=== PATIENT | female | born 1965 | race Caucasian/White ===

== ENCOUNTER 2017-04-16 10:20 | Emergency (ER) | payer OTHER ==
[~2017-04-16] VITALS: Ht 162.6 cm; Wt 121.6 kg
[~2017-04-16 10:20] MED LIST: ALBUAER19 INH; ASCO1CAP3 PO; ASPI-435 PO; CHOL20009 PO; CYM/30 PO; DIVA250T PO; LPR100 PO; METR0.75 TOP; MISC4CAP PO; MULTTAB58 PO; PRAZ2CAP2 PO; PROM12.56 PO; SYN75 PO; TRAZ100T29 PO
[2017-04-16 10:22] VITALS: TEMP 36.3; Ht 162.6 cm; Wt 121.6 kg
[2017-04-16] MEDS ORDERED: LORA-741 PO (10:46)
[2017-04-16] MEDS ORDERED: PROCHLORPERAZINE 5 MG/ML 2 ML VIAL IV STA (11:01)
[2017-04-16] MEDS ORDERED: DiphenhydrAMINE HCL 50 MG/ML VIAL IV STA (11:01)
[2017-04-16] MEDS ORDERED: SODIUM CHLORIDE 0.9% 500ML 500 ML IV STA (11:01)
[2017-04-16] MEDS ORDERED: METHYLPREDNISOLONE 125 MG VIAL IV STA (11:01)
--- NOTE | 2017-04-16 11:08 | EMERGENCY ROOM VISIT NOTE ---
History Report prepared by Constance: Brendon Canseco Under the Supervision of: Dr. Jeimy Du M.D. First contact with patient: 10:54 Chief Complaint: HEADACHE Stated Complaint: BELLA, EARS RINGING, BLURRY VISION History of Present Illness The patient is a 51 year old female who presents to the Emergency Room with complaints of a persistent right-sided headache for the past 1.5 weeks. The pain is currently rated 7/10 in severity, and she has been taking Aleve. The patient also complains of ringing in her ears and blurrier vision in one eye. She denies fevers, sinus pressure, speech difficulty, or true loss of vision. She initially thought her pain may be dental and did see her dentist. She also saw her doctor who wanted her to have an MRI today. The patient has a history of TBI. She is also treated for depression and hypothyroidism. The patient denies history of blood sugar problems. Source of History: patient Onset: 1.5 weeks ago Position: head Symptom Intensity: 7/10 Timing: other (persistent) Review of Systems See HPI for pertinent positives & negatives. A total of 10 systems reviewed and were otherwise negative. Past Medical & Surgical Medical Problems: (1) Depression (2) Hypothyroid (3) TBI (traumatic brain injury) Family History No pertinent family history Social History Smoking Status: Never Smoker Drug Use: none Marital Status: Housing Status: lives with significant other Occupation Status: employed Current/Historical Medications Scheduled Ascorbic Acid (Vitamin C), 500 MG PO DAILY Aspirin (Aspirin 81), 81 MG PO DAILY Cholecalciferol (Vitamin D), 2,000 UNITS PO DAILY Divalproex Sodium (Depakote Er), 250 MG PO HS Levothyroxine Sodium (Synthroid), 1 TAB PO DAILY Lorazepam (Ativan), Unknown Dose PO HS Metoprolol Tartrate (Metoprolol Tartrate), PO BID Multiple Vitamin (Multivitamin), 1 TAB PO DAILY Prazosin Hcl (Prazosin), 2 MG PO HS Probiotic Product (Align), 1 CAP PO DAILY Promethazine Hcl (Phenergan), 12.5 MG PO Q6H Allergies Coded Allergies: No Known Allergies (Unverified , 09/02/15) Physical Exam Vital Signs Date Time Temp Pulse Resp B/P (MAP) Pulse Ox O2 Delivery O2 Flow Rate FiO2 04/16/17 14:24 60 16 115/68 94 04/16/17 13:41 91 18 115/68 98 Room Air 04/16/17 13:21 92 04/16/17 11:41 96 18 131/79 92 Room Air 04/16/17 10:22 36.3 106 18 160/95 92 Room Air Physical Exam Vital signs reviewed. General: Well-appearing obese female, in no significant distress. HEENT: No scleral icterus, PERRLA, neck supple. Atraumatic. No meningeal signs. Cardiovascular: Regular rate and rhythm, no extra sounds. Pulmonary: Clear to auscultation bilaterally, normal work of breathing. Abdomen: Soft, nontender, nondistended, positive bowel sounds. Musculoskeletal: Atraumatic, no peripheral edema. Neurologic: Patient awake alert and oriented x 3, full strength in all 4 extremities. Cranial nerves 2 through 12 grossly intact. Skin: Warm, dry, no rash Medical Decision & Procedures ER Provider Diagnostic Interpretation: Radiology results as stated below per my review and radiologist interpretation: CT SCAN OF THE BRAIN WITHOUT IV CONTRAST CLINICAL HISTORY: Headache. Weakness. COMPARISON STUDY: CT of the brain dated 09/02/2015. TECHNIQUE: Unenhanced axial CT scan of the brain is performed from the vertex to the skull base. Automated dose control exposure was utilized. CT DOSE: 537.48 mGy.cm FINDINGS: Brain parenchyma: The brain parenchyma is normal in appearance. There is no hemorrhage, mass effect, or evidence of acute territorial ischemia by CT criteria. Wynn-white matter is preserved. No extra-axial fluid collection is seen. Ventricles, sulci, cisterns: Normal in configuration. Intracranial vasculature: The visualized intracranial vasculature at the skull base is normal in appearance. Calvarium: Unremarkable. Sinuses and mastoids: The visualized paranasal sinuses are clear. The mastoid air cells are well pneumatized. Orbits: The bony orbits are grossly intact. IMPRESSION: No acute intracranial abnormality. Electronically signed by: Saeid Davis M.D. 04/16/2017 11:54 AM Dictated Date/Time: 04/16/2017 11:53 AM Laboratory Results 04/16/17 11:25 Red Blood Count 4.24, Mean Corpuscular Volume 86.1, Mean Corpuscular Hemoglobin 28.8, Mean Corpuscular Hemoglobin Concent 33.4, Mean Platelet Volume 9.3, Neutrophils (%) (Auto) 56.9, Lymphocytes (%) (Auto) 28.9, Monocytes (%) (Auto) 7.4, Eosinophils (%) (Auto) 6.4, Basophils (%) (Auto) 0.3, Neutrophils # (Auto) 4.14, Lymphocytes # (Auto) 2.11, Monocytes # (Auto) 0.54, Eosinophils # (Auto) 0.47, Basophils # (Auto) 0.02 04/16/17 11:25 Test 04/16/17 11:00 04/16/17 11:25 Urine Color DK YELLOW Urine Appearance CLOUDY (CLEAR) Urine pH 7.0 (4.5-7.5) Urine Specific [place] 1.035 (1.000-1.030) Urine Protein NEG (NEG) Urine Glucose (UA) NEG (NEG) Urine Ketones TRACE (NEG) Urine Occult Blood NEG (NEG) Urine Nitrite NEG (NEG) Urine Bilirubin NEG (NEG) Urine Urobilinogen NEG (NEG) Urine Leukocyte Esterase TRACE (NEG) Urine WBC (Auto) 5-10 /hpf (0-5) Urine RBC (Auto) 0-4 /hpf (0-4) Urine Hyaline Casts (Auto) 5-10 /lpf (0-5) Urine Epithelial Cells (Auto) >30 /lpf (0-5) Urine Bacteria (Auto) 4+ (NEG) Urine Renal Epithelial Cells 0-5 /lpf (0-5) White Blood Count 7.29 K/uL (4.8-10.8) Red Blood Count 4.24 M/uL (4.2-5.4) Hemoglobin 12.2 g/dL (12.0-16.0) Hematocrit 36.5 % (37-47) Mean Corpuscular Volume 86.1 fL (80-100) Mean Corpuscular Hemoglobin 28.8 pg (25-34) Mean Corpuscular Hemoglobin Concent 33.4 g/dl (32-36) Platelet Count 271 K/uL (130-400) Mean Platelet Volume 9.3 fL (7.4-10.4) Neutrophils (%) (Auto) 56.9 % Lymphocytes (%) (Auto) 28.9 % Monocytes (%) (Auto) 7.4 % Eosinophils (%) (Auto) 6.4 % Basophils (%) (Auto) 0.3 % Neutrophils # (Auto) 4.14 K/uL (1.4-6.5) Lymphocytes # (Auto) 2.11 K/uL (1.2-3.4) Monocytes # (Auto) 0.54 K/uL (0.11-0.59) Eosinophils # (Auto) 0.47 K/uL (0-0.5) Basophils # (Auto) 0.02 K/uL (0-0.2) RDW Standard Deviation 44.0 fL (36.4-46.3) RDW Coefficient of Variation 14.0 % (11.5-14.5) Immature Granulocyte % (Auto) 0.1 % Immature Granulocyte # (Auto) 0.01 K/uL (0.00-0.02) Anion Gap 7.0 mmol/L (3-11) Est Creatinine Clear Calc Drug Dose 85.6 ml/min Estimated GFR () 75.5 Estimated GFR (Non- 65.2 BUN/Creatinine Ratio 16.5 (10-20) Calcium Level 8.8 mg/dl (8.5-10.1) Magnesium Level 2.2 mg/dl (1.8-2.4) Total Bilirubin 0.5 mg/dl (0.2-1) Direct Bilirubin < 0.1 mg/dl (0-0.2) Aspartate Amino Transf (AST/SGOT) 49 U/L (15-37) Alanine Aminotransferase (ALT/SGPT) 68 U/L (12-78) Alkaline Phosphatase 91 U/L (45-117) Total Protein 6.9 gm/dl (6.4-8.2) Albumin 3.6 gm/dl (3.4-5.0) Thyroid Stimulating Hormone (TSH) 3.080 uIu/ml (0.300-4.500) Date/Time Source Procedure Growth Status 04/16/17 11:00 Urine , Clean Catch Urine Culture - Final MORE THAN THREE TYPES OF ORGANISMS LA... Complete Laboratory results per my review. Medications Administered Medications (Trade) Dose Ordered Sig/Latrell Route Start Time Stop Time Status Last Admin Dose Admin Methylprednisolone Sodium Succinate (Solu-Medrol IV) 125 mg NOW STAT IV 04/16/17 11:01 04/16/17 11:05 DC 04/16/17 11:01 125 MG Prochlorperazine Edisylate (Compazine Inj) 10 mg NOW STAT IV 04/16/17 11:01 04/16/17 11:05 DC 04/16/17 11:01 10 MG Diphenhydramine HCl (Benadryl Inj) 25 mg NOW STAT IV 04/16/17 11:01 04/16/17 11:05 DC 04/16/17 11:39 25 MG Sodium Chloride 500 ml @ 999 mls/hr Q31M STAT IV 04/16/17 11:01 04/16/17 11:31 DC 04/16/17 11:01 999 MLS/HR ECG Indication: other (neuro symptoms) Rate (beats per minute): 93 Rhythm: normal sinus Findings: no acute ischemic change, no ectopy, other (low voltage QRS) ED Course 1100: Past medical records reviewed. The patient was evaluated in room B10. A complete history and physical examination was performed. 1101: NSS 500 ml @ 999 mls/hr, Benadryl 25 mg IV, Compazine 10 mg IV, Solu- Medrol 125 mg IV. 1415: Reassessed the patient. Discussed the workup with her. She understands and agrees with the treatment plan. The patient is ready for discharge. Medical Decision Differential Diagnosis: Intracranial hemorrhage, intracranial mass, migraine headache, tension headache , sinusitis, meningitis Medication Reconciliation: I attest that I have personally reviewed the patient' s current medication list. Blood Pressure Screening: Patient was found to have high blood pressure on initial screening which resolved in the ED and does not require follow-up. This pt was evaluated and appeared to be in no distress. IV access was obtained and lab work was drawn. Pt was hydrated with NSS. Pt was given IV solumedral, compazine and benadryl. Head CT is negative. Pt was feeling much improved. I suspect this is a migraine r/t recent dental work. She was advised to f/u with PCP as she has been cleared by dentistry. Pt will return to the ED for worsening of symptoms or any medical concerns. Impression Primary Impression: Headache Scribe Attestation The scribe's documentation has been prepared under my direction and personally reviewed by me in its entirety. I confirm that the note above accurately reflects all work, treatment, procedures, and medical decision making performed by me. Departure Information Dispostion Home / Self-Care Referrals No Doctor, Assigned (PCP) Forms HOME CARE DOCUMENTATION FORM, IMPORTANT VISIT INFORMATION Patient Instructions [facility] Additional Instructions Diagnosis: Migraine headache Please proceed with your MRI as scheduled. Drink plenty of clear fluids. Ibuprofen 600 mg every 6 hours as needed for pain with food. Follow-up with your physician this week for reevaluation and follow-up of results of your MRI. Return to the ER for worsening of symptoms or any medical concerns. Problem Qualifiers Primary Impression: Headache Headache type: tension-type Headache chronicity pattern: acute headache Intractability: intractable Qualified Codes: G44.201 - Tension-type headache , unspecified, intractable
[2017-04-16 11:29] LABS: URINE APPEARANCE CLOUDY (CLEAR); URINE BILIRUBIN NEG (NEG); URINE COLOR DK YELLOW; URINE EPITHELIAL CELL AUTO >30 /lpf (0-5); URINE NITRITE NEG (NEG); URINE SPECIFIC GRAVITY 1.035 (1.000-1.030); UROBILINOGEN NEG (NEG); ZZUR CULT IF INDIC CLEAN CATCH YES
[2017-04-16 11:36] LABS: BASO % 0.3 %; BASO ABS # 0.02 K/uL (0-0.2); COMPLETE YES; EOS % 6.4 %; HEMATOCRIT 36.5 % (37-47); IG% 0.1 %; LYMPH % 28.9 %; LYMPH ABS # 2.11 K/uL (1.2-3.4); MEAN CELL VOLUME 86.1 fL (80-100); MEAN CORPUSCULAR HEMOGLOBIN 28.8 pg (25-34); MEAN CORPUSCULAR HGB CONC 33.4 g/dl (32-36); MEAN PLATELET VOLUME 9.3 fL (7.4-10.4); MONO % 7.4 %; NEUT % 56.9 %; PLATELET COUNT 271 K/uL (130-400); RED BLOOD COUNT 4.24 M/uL (4.2-5.4); WHITE BLOOD COUNT 7.29 K/uL (4.8-10.8)
[2017-04-16 11:37] LABS: REVIEW REQ? YES
[2017-04-16 11:38] LABS: MANUAL MICROSCOPIC REQUIRED? NO
[2017-04-16 11:53] LABS: ALT/SGPT 68 U/L (12-78); BLOOD UREA NITROGEN 16 mg/dl (7-18); BUN/CREATININE RATIO 16.5 (10-20); CALCIUM 8.8 mg/dl (8.5-10.1); CARBON DIOXIDE 29 mmol/L (21-32); CHLORIDE 105 mmol/L (98-107); GLUCOSE 91 mg/dl (70-99); MAGNESIUM 2.2 mg/dl (1.8-2.4); POTASSIUM 4.3 mmol/L (3.5-5.1); SODIUM 141 mmol/L (136-145)
--- NOTE | 2017-04-16 11:56 | DIAGNOSTIC IMAGING REPORT ---
CT SCAN OF THE BRAIN WITHOUT IV CONTRAST CLINICAL HISTORY: Headache. Weakness. COMPARISON STUDY: CT of the brain dated 09/02/2015. TECHNIQUE: Unenhanced axial CT scan of the brain is performed from the vertex to the skull base. Automated dose control exposure was utilized. CT DOSE: 537.48 mGy.cm FINDINGS: Brain parenchyma: The brain parenchyma is normal in appearance. There is no hemorrhage, mass effect, or evidence of acute territorial ischemia by CT criteria. Wynn-white matter is preserved. No extra-axial fluid collection is seen. Ventricles, sulci, cisterns: Normal in configuration. Intracranial vasculature: The visualized intracranial vasculature at the skull base is normal in appearance. Calvarium: Unremarkable. Sinuses and mastoids: The visualized paranasal sinuses are clear. The mastoid air cells are well pneumatized. Orbits: The bony orbits are grossly intact. IMPRESSION: No acute intracranial abnormality. Electronically signed by: Saeid Davis M.D. 04/16/2017 11:54 AM Dictated Date/Time: 04/16/2017 11:53 AM
[2017-04-16 12:04] LABS: ALKALINE PHOSPHATASE 91 U/L (45-117); AST/SGOT 49 U/L (15-37)
[2017-04-16 14:24] VITALS: BP 115/68; PULSE 60; O2SAT 94
== END 2017-04-16 14:25 | disposition home or self-care (01) ==
LOC: C.EDB 10:22
DX: R51 Headache (principal); E03.9 Hypothyroidism, unspecified; F32.9 Major depressive disorder, single episode, unspecified; Z87.820 Personal history of traumatic brain injury; Z79.82 Long term (current) use of aspirin; Z79.899 Other long term (current) drug therapy